=== PATIENT | female | born 2000 | race Caucasian/White ===

== ENCOUNTER 2024-03-29 19:10 | Outpatient (CLI) | payer OTHER ==
--- NOTE | 2024-03-30 07:38 | XRAY Report ---
PROCEDURE: Cervical Spine 2-3V INDICATIONS: STRAIN OF MUSCLE,FASCIA AND TENDON AT NECK LEVEL TECHNIQUE: 3 view(s) of the cervical spine were acquired. COMPARISON: None. FINDINGS: Bones: No fractures or dislocations to the C7-T1 level. The lateral masses of C1 appear intact on t he odontoid view. No suspicious bony lesions. Soft tissues: No prevertebral soft tissue swelling. IMPRESSION: No displaced fracture or traumatic subluxation. Reviewed by: Nacho Deal MD on 03/30/2024 6:37 AM [facility] Approved by: Nacho Deal MD on 03/30/2024 6:37 AM [facility] Station ID: [id number]
== END 2024-03-29 19:11 | disposition home or self-care (01) ==
LOC: DI 19:10
PROVIDERS: ATTEND Family Medicine
DX: S16.1XXA Strain of muscle, fascia and tendon at neck level, initial encounter (principal)